=== PATIENT | male | born 1980 | race Caucasian/White ===

== ENCOUNTER 2017-10-29 13:29 | Emergency (ER) | payer BC ==
[~2017-10-29] VITALS: Ht 167.6 cm; Wt 124.7 kg
[~2017-10-29 13:29] MED LIST: AMOXICILLIN500 MG PO; MOTRIN400 MG PO; NKHM; PEPCID20 MG PO; SUDAFED 12 HOU120 MG PO; ZITHROMAX Z PA250 MG PO
[2017-10-29] MEDS ORDERED: SILVADENE,SSD C50 GM T (14:13)
[2017-10-29] MEDS ORDERED: KEFLEX500 M1 PO (14:13)
[2017-10-29] MEDS ORDERED: NAPROSYN500 MG PO (14:13)
== END 2017-10-29 14:42 | disposition home or self-care (01) ==
LOC: ED 13:29
DX: T22.212A Burn of second degree of left forearm, initial encounter (principal); S40.011A Contusion of right shoulder, initial encounter; R03.0 Elevated blood-pressure reading, without diagnosis of hypertension; Z88.6 Allergy status to analgesic agent; V86.99XA Unspecified occupant of other special all-terrain or other off-road motor vehicle injured in nontraffic accident, initial encounter; Y93.89 Activity, other specified; Y92.89 Other specified places as the place of occurrence of the external cause; Y99.8 Other external cause status

== ENCOUNTER 2024-12-05 07:52 | Emergency (ER) | payer BC ==
[~2024-12-05] VITALS: Ht 167.6 cm; Wt 127.0 kg
[~2024-12-05 07:52] MED LIST changes: +KEFLEX500 M1 PO; +NAPROSYN500 MG PO; +SILVADENE,SSD C50 GM T
[2024-12-05] MEDS ORDERED: Dexamethasone Sodium Phospha 20 MG/5 ML VIAL IM ONE (08:10)
[2024-12-05] MEDS ORDERED: MEDROL DOSEPAK4 MG PO (09:15)
[2024-12-05] MEDS ORDERED: MELOXICAM15 MG PO (09:15)
== END 2024-12-05 09:29 | disposition home or self-care (01) ==
LOC: ED 07:52
DX: M77.11 Lateral epicondylitis, right elbow (principal); Z88.6 Allergy status to analgesic agent